=== PATIENT | male | born 1985 | race Caucasian/White ===

== ENCOUNTER → 2021-03-06 | Outpatient (CLI) | payer BC | END | disposition home or self-care (01) | LOC: LABPAT 07:47 | PROVIDERS: ATTEND Surgery | DX: Z01.810 Encounter for preprocedural cardiovascular examination (principal); Z01.812 Encounter for preprocedural laboratory examination; Z20.822 Contact with and (suspected) exposure to COVID-19 | CPT/HCPCS: 93005; U0003; C9803; U0005; 86850; 86900; 86901 ==

== ENCOUNTER 2021-03-13 08:26 | Day surgery (SDC) | payer BC ==
[2021-03-09 10:40] VITALS: BMI 25.1
[~2021-03-13 08:26] MED LIST: DEXAMETHASONE SOD PHOSPHATE 4 MG/ML 1 ML VIAL IV ONE; HEPARIN SODIUM,PORCINE/PF 5,000 UNIT/0.5 ML SYRINGE SQ PRN; HYDROmorphone 0.5 MG/0.5 ML SYRINGE IVP PRN; LACTATED RINGERS 1,000 ML IV SCH; LIDOCAINE 1% (10MG/ML) FOR IV START INTRADERMA PRN; MIDAZOLAM 2 MG/2 ML VIAL IV PRN; ONDANSETRON 4 MG/2 ML VIAL IVP ONE
[2021-03-13 08:47] VITALS: RESP 16; TEMP 97.6
[2021-03-13] MEDS ORDERED: fentaNYL (PF) 50 MCG/ML 2 ML AMP IV ONE (09:57)
[2021-03-13] MEDS ORDERED: GLYCOPYRROLATE 0.2 MG/ML 2 ML VIAL ONE (10:11)
[2021-03-13] MEDS ORDERED: LIDOCAINE 1% INJ 10MG/ML (20 ML MDV) ONE (10:11)
[2021-03-13] MEDS ORDERED: KETOROLAC 15 MG/ML 1 ML VIAL ONE (10:11)
[2021-03-13] MEDS ORDERED: DEXAMETHASONE SOD PHOSPHATE 4 MG/ML 1 ML VIAL ONE (10:11)
[2021-03-13] MEDS ORDERED: NEOSTIGMINE 1 MG/ML 10 ML VIAL ONE (10:11)
[2021-03-13] MEDS ORDERED: fentaNYL (PF) 50 MCG/ML 2 ML AMP ONE (10:11)
[2021-03-13] MEDS ORDERED: ROPIVACAINE 5 MG/ML 30 ML VIAL ONE (10:11)
[2021-03-13] MEDS ORDERED: PROPOFOL 10 MG/ML 20 ML VIAL IV ONE (10:11)
[2021-03-13] MEDS ORDERED: ROCURONIUM 10 MG/ML (5 ML VIAL) IV ONE (10:11)
[2021-03-13] MEDS ORDERED: SUCCINYLCHOLINE CHLORIDE 100 MG/5 ML SYR IV ONE (10:11)
[2021-03-13] MEDS ORDERED: BUPIVACAINE (PF) 0.25% 30 ML VIAL SQ ONE ×2 (10:34)
[2021-03-13] MEDS ORDERED: LACTATED RINGERS 1,000 ML IV ONE (10:35)
--- NOTE | 2021-03-13 11:42 | P.OP ---
Date of Procedure: 03/13/21 Preoperative Diagnosis: Right inguinal hernia Postoperative Diagnosis: Right inguinal indirect hernia Procedure(s) Performed: Robotic right inguinal hernia repair with mesh Anesthesia: GERTRUDIS Surgeon: Cullen Serrano Pathology: none sent Condition: stable Disposition: same day Indications for Procedure: 35-year-old male presented to the surgery clinic with complaints of right inguinal discomfort and a slight bulge. On workup, patient was noted to have a moderate-sized right inguinal hernia. Recommendation was made for robotic right inguinal hernia repair. Patient was excellent risks, benefits and alternatives to the procedure did provide consent prior to attending the operating suite. Operative Findings: Right indirect inguinal hernia Description of Procedure: The patient was brought back to the operating suite and placed in supine position. General endotracheal anesthesia was induced. Arms were then tucked incised bilaterally and all pressure points were padded. SCDs were also placed in his bilateral lower extremities are working throughout the case. Preoperative antibiotics were given prior to the incision. A timeout was performed with all team members in agreement with correct patient, procedure and location. A super umbilical incision was made approximately 20 cm superior to the pubic symphysis. The abdomen was then entered under direct visualization. At this point pneumoperitoneum was achieved. 2 additional incisions were made approximately 11 some areas lateral to the super umbilical incision and a millimeter trochars were placed. The patient was then placed in Trendelenburg position the hernia site was clearly visualized on the right side. This was noted as a right sided indirect inguinal hernia. The robot was undocked appropriate. Incision was then made just lateral to the medial umbilical ligament on the right side with the monopolar scissors and the peritoneal flap was created and was taken down towards Cornelius's ligament. The flap was then extended laterally. Attention was then turned to the indirect internal hernia. The sac was freed from the cord, all while preserving the cord structures. At this point the indirect inguinal hernia was reduced. Once interspace was properly dissected out, we brought the laparoscopic anatomic parietex progrip mesh and unrolled it over the hernia site. Once appropriately in place, the peritoneal flap was closed using a running 20V lock suture. Once this was completed, removed all the robotic instruments and undocked the robot. The super umbilical fascial incision was closed with 0 Vicryl suture using the Enrike Bone device. This was done under lapped scopic guidance. All skin incisions were then closed with 4-0 Vicryl subcutaneous suture. The patient was awakened and taken to the postanesthesia care unit in stable condition.
[2021-03-13] MEDS ORDERED: HYDROcodone/APAP 7.5-325MG 1 EACH TAB ONE (12:22)
[2021-03-13] MEDS ORDERED: HYDROcodone/APAP 5-325MG 1 EACH TAB PO ONE (12:34)
[2021-03-13] MEDS ORDERED: HYDROcodone/APAP 5-325MG 1 EACH TAB ONE (12:34)
--- NOTE | 2021-03-13 13:50 | P.ANPRN ---
Procedure Note - Anesthesia - Nerve Block Performed Bilateral Erector Spinae Time Out Performed: Yes (09:55) Date of Procedure: 03/13/21 Procedure Start Time: Procedure Stop Time: :11 Location of Patient: PreOp Indication: Acute Post-Operative Pain, Requested by Surgeon (Dr Serrano) Sedation Type: Sedate with meaningful contact maintained Preparation: Sterile Prep Position: Prone Catheter: None Needle Types: Pajunk Needle Gauge: 21 Ultrasound used to visualize needle placement: Yes Ultrasound used to observe medication spread: Yes Injectate: 0.5% Ropivacaine (see comment for volume) (15cc + decadron 2mg + 10cc PFnormal saline each side)
[2021-03-13 13:51] VITALS: BP 130/70; PULSE 80
== END 2021-03-13 13:55 | disposition home or self-care (01) ==
LOC: OR 08:26
PROVIDERS: ATTEND Surgery
DX: K40.90 Unilateral inguinal hernia, without obstruction or gangrene, not specified as recurrent (principal)
CPT/HCPCS: 64999; 76942; 49650; C1781; J2250; J1100; J2710; J0690; J2405; J2001; J3010; J2795; J1885; J0330; J2704; J1170; J1644; 86850; 86900; 86901